=== PATIENT | female | born 1980 | race Caucasian/White ===

== ENCOUNTER → 2016-05-04 | Outpatient (REF) | payer OTHER ==
[~2016-05-04] MED LIST: LORATAB PO
[2016-05-04 13:44] LABS: INR 1.09
== END ==
LOC: M LAB REF 12:53
PROVIDERS: ATTEND Internal Medicine Medical Oncology
DX: C50.411 Malignant neoplasm of upper-outer quadrant of right female breast (principal); Z17.1 Estrogen receptor negative status [ER-]

== ENCOUNTER → 2016-05-09 | Outpatient (CLI) | payer OTHER ==
--- NOTE | 2016-05-10 21:52 | ECHO ---
DATE OF PROCEDURE: 05/09/2016 REFERRING PHYSICIAN: Riya Brewer MD INDICATION: Chemotherapy drugs that may affect the heart. HEIGHT: 163 cm WEIGHT: 61 kg MEASUREMENTS: Left atrium: 2.6 cm Ventricular septum: 0.83 cm Posterior wall: 0.74 cm Left ventricle diastole: 3.4 cm Aortic root: 2.5 cm LVOT: 1.8 cm Inferior vena cava: 1.6 cm DOPPLER MEASUREMENTS: Aortic valve velocity: 112 cm/s LVOT velocity: 79.0 cm/s Mitral E velocity: 86.9 cm/s Mitral A velocity: 54.8 cm/s Very mild tricuspid regurgitation. Estimated right ventricle systolic pressure 20 mmHg assuming a right atrial pressure of 5 mmHg. Pulmonary artery systolic pressure 11 mmHg by pulmonary acceleration time method. MITRAL ANNULAR TISSUE DOPPLER: E prime septal: 11.7 cm/s E prime lateral: 17.5 cm/s DESCRIPTION: Rhythm was sinus. Image quality was fair. No pericardial effusion. This is a 2D, M-mode, color flow Doppler and pulse wave Doppler examination that included mitral annular tissue Doppler. CONCLUSIONS: 1. Normal echocardiogram Doppler. 2. Normal left ventricle (LV) internal dimensions and wall thickness. Normal LV wall motion and wall thickening. Normal LV systolic and diastolic function. Left ventricular ejection fraction (LVEF) 70% by visual estimate.
== END ==
LOC: M CARPUL 11:15
PROVIDERS: ATTEND Internal Medicine Medical Oncology
DX: C50.919 Malignant neoplasm of unspecified site of unspecified female breast (principal)

== ENCOUNTER → 2016-05-10 | Outpatient (CLI) | payer OTHER ==
[~2016-05-10] MED LIST changes: +LIDOCAINE 2% MDV 20 ML VIAL As Ordered ONE; +LIDOCAINE W/EPINEPHRINE 1% 20ML VIAL As Ordered ONE; +SODIUM BICARBONATE 8.4% INJ 50MEQ 50 ML VIAL As Ordered ONE; +ceFAZolin 1GM INJ (J0690) As Ordered ONE
--- NOTE | 2016-05-11 17:56 | REPKIM ---
CLINICAL HISTORY: Breast ca on the right. The referring service has asked a chest [id number] placement for chemotherapy. PROCEDURE PERFORMED: Placement of totally implantable venous access device under combined sonographic and fluoroscopic guidance INTERVENTIONALIST: Chi Cordova MD CONSENT: The risks, benefits and alternatives to the procedure were explained to the patient and informed written consent was obtained. MEDICATIONS: Local Lidocaine and Ancef 1gm IV EBL: 5 mL FLUORO TIME: 0.4 minutes DEVICE USED: [email or web address] Low Profile Port 6.6-Hebrew, Single-Lumen Lot#[id number] PROCEDURE/FINDINGS: The patient was brought to the interventional radiology suite and was positioned supine on the table. Time out procedure was performed. Real time ultrasound was used and permanent image stored. The left IJ vein is patent and compressible. Using ultrasound guidance the internal jugular vein was accessed with a micropuncture needle, after infiltration of the skin and deep tissues with local anesthetic. A peel-away sheath was placed. The catheter tip was inserted via the sheath under controlled respiration. The sheath was removed, and the catheter was flushed with heparinized saline and clamped. Next attention was turned to creation of a subcutaneous pocket for the port along the upper chest. The overlying skin and deep tissues were infiltrated with local anesthetic. A transverse skin incision was made long enough to accommodate the reservoir, and using blunt dissection a subcutaneous pocket was created. A tunnel was created from the pocket to the access site. A clamp was advanced from the pocket incision to the venous access site and used to grasp the free end of the catheter and pull it through to the pocket incision. The catheter was trimmed, attached to the reservoir, and flushed with heparinized saline. The reservoir was inserted into the pocket and secured with 2-0 absorbable sutures. The deep tissue was closed with interrupted 2-0 Vicryl suture. The skin incision was closed with a running subcuticular suture of 4-0 Vicryl. The venotomy incision was closed with 4-0 Vicryl suture. Mastisol and Steri-Strips were applied. The port was then accessed and Heparin (100 units/mL concentration) locked in the port. A sterile dressing was then applied. Post procedure chest spot film radiograph showed the tip of the catheter is at the cavoatrial junction. The patient tolerated the procedure well with no immediate complications. This procedure was performed using ultrasound and fluoroscopy. Dr. Cordova was present. IMPRESSION: 1. The left IJ vein is patent and compressible. 2. Successful placement of left IJ chest port placement as discussed above. The chest [id number] is ready for use. cc: MD FRANCISCA Giron
== END | disposition home or self-care (01) ==
LOC: M IRPRO 08:36
PROVIDERS: ATTEND Internal Medicine Medical Oncology
DX: C50.911 Malignant neoplasm of unspecified site of right female breast (principal)
CPT/HCPCS: 36561; 76937; 77001; C1788; C1894; J0690

== ENCOUNTER 2016-07-07 16:26 | Outpatient (CLI) | payer OTHER ==
[~2016-07-07] VITALS: Ht 162.6 cm; Wt 54.5 kg
[~2016-07-07 16:26] MED LIST changes: -LIDOCAINE 2% MDV 20 ML VIAL As Ordered ONE; -LIDOCAINE W/EPINEPHRINE 1% 20ML VIAL As Ordered ONE; -SODIUM BICARBONATE 8.4% INJ 50MEQ 50 ML VIAL As Ordered ONE; -ceFAZolin 1GM INJ (J0690) As Ordered ONE
[2016-07-07 17:00] VITALS: BP 103/56
[2016-07-07] MEDS ORDERED: diphenhydrAMINE 25 MG CAP PO ONE (17:00)
[2016-07-07] MEDS ORDERED: SODIUM CHLORIDE 0.9% INJ 10 ML SYR IV PRN (17:00)
[2016-07-07] MEDS ORDERED: ACETAMINOPHEN TAB 650MG DOSE (2X325MG) PO ONE (17:15)
[2016-07-08] MEDS ORDERED: SODIUM CHLORIDE 0.9% INJ 10 ML SYR IV SCH (09:00)
== END 2016-07-08 01:00 | disposition home or self-care (01) ==
LOC: M OPCLI4PV 16:26 → M MSPAV 16:43 → M OPCLI4PV 07-08 01:00
PROVIDERS: ATTEND Nurse Practitioner Family
DX: D64.81 Anemia due to antineoplastic chemotherapy (principal)
CPT/HCPCS: 36430; P9016

== ENCOUNTER → 2016-10-06 | Outpatient (CLI) | payer OTHER ==
--- NOTE | 2016-10-08 07:06 | RADONC ---
RADIATION ONCOLOGY CONSULTATION NOTE DATE: 10/06/2016 CHART NUMBER: [id number] DIAGNOSIS: Right breast cancer. STAGE: IA, [id number]. ECOG PERFORMANCE STATUS: 0 CONSULTATION NOTE: Ms. 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 Since she was last seen by us, she presented to medical oncology where she received systemic therapy consisting of a dose dense Adriamycin and Cytoxan as well as Taxol. Her chemotherapy is now complete with the last cycle done on 09/22/2016. She is now presenting for discussion of postoperative radiation therapy once again. PAST MEDICAL HISTORY: The patient's past medical history is noncontributory. She has been in excellent health. SOCIAL HISTORY: The patient has smoked one to two cigarettes per day for about 3 years. She quit in 2003. She drinks alcohol daily. ALLERGIES: The patient has NO KNOWN DRUG ALLERGIES. FAMILY HISTORY: The patient's family history is negative for breast cancer or other malignancies. REVIEW OF SYSTEMS: The patient's review of systems is noncontributory. She denies nausea, vomiting, fevers, chills, night sweats, diplopia, headaches, anxiety or depression, anorexia, weight loss, visual disturbances, chest pain, urinary or bowel difficulties, bone pain, or neurological problems. PHYSICAL EXAMINATION: The patient is a well-developed, well-nourished white female in no acute distress. HEENT exam is normocephalic, atraumatic. Extraocular movements are intact. There is no palpable cervical, supraclavicular, infraclavicular, axillary, or inguinal lymphadenopathy present. Lungs are clear to auscultation and percussion. Heart has a regular rate and rhythm. Abdomen is benign with no hepatosplenomegaly, masses, or tenderness. Breast examination reveals no masses or discharge bilaterally. Skeletal examination reveals no tenderness to pressure or percussion of the bony skeleton. Extremities reveal no clubbing, cyanosis, or edema. Neurologic exam is grossly intact, as is the remainder of the physical examination. ASSESSMENT: Clearly the patient is a candidate for external beam radiation therapy and I have so informed her. I have discussed with the patient in detail the potential benefits as well as possible acute and chronic sequelae of external beam radiation therapy. We discussed the logistics of treatment planning, simulation, and subsequent fractionated daily radiation treatments. I have scheduled the patient for the next available simulation slot and radiation treatments will begin subsequently. Thank you for allowing us to participate in the care of this very pleasant woman. If I could be of any further assistance or provide you with any information, please free to contact me anytime. cc: MD Mickey Rod MD
--- NOTE | 2016-11-01 09:00 | RADONC ---
RADIATION ONCOLOGY PROGRESS NOTE: DATE: 10/31/2016 CHART NUMBER: [id number]. PROGRESS NOTE: Ms. Banks is presently at a dose of 1620 cGy to her right breast and is tolerating treatments quite well at this point with no complaints related to her radiation therapy. She has got no breast or bone pain. REVIEW OF SYSTEMS: The patient's review of systems is noncontributory. Denies nausea, vomiting, fevers, chills, night sweats, diplopia, headaches, anxiety or depression, anorexia, weight loss, visual disturbances, chest pain, urinary or bowel difficulties, bone pain, or neurological problems. PHYSICAL EXAMINATION: The patient's skin is in good condition with no evidence of moist or dry desquamation. The remainder of her physical exam remains unchanged. Ms. Banks is tolerating treatments quite well and radiation will continue as scheduled.
== END ==
LOC: M ONCR 09:08
PROVIDERS: ATTEND Radiology Radiation Oncology
DX: C50.411 Malignant neoplasm of upper-outer quadrant of right female breast (principal)

== ENCOUNTER 2016-10-11 13:45 | Outpatient (RCR) | payer OTHER ==
--- NOTE | 2016-10-12 08:37 | RADONC ---
RADIATION ONCOLOGY SIMULATION NOTE DATE: 10/11/2016 CHART NUMBER: [id number] Ms. Banks was taken to the CT scan for CT simulation of her right breast field. CT was accomplished without difficulty or discomfort. Radiation treatment planning is underway and radiation treatments will begin subsequently. An immobilization device was created without difficulty or discomfort. It will be used throughout the course of treatment. I was physically present throughout the course of CT simulation.
--- NOTE | 2016-10-25 08:06 | RADONC ---
RADIATION ONCOLOGY PROGRESS NOTE DATE: 10/24/2016 CHART NUMBER: [id number] Ms. Banks is presently at a dose of 720 cGy to her right breast and is tolerating treatments quite well at this point with no difficulties related to her radiation therapy. The patient's review of systems is noncontributory. She denies nausea, vomiting, fevers, chills, night sweats, diplopia, headaches, anxiety or depression, anorexia, weight loss, visual disturbances, chest pain, urinary or bowel difficulties, bone pain, or neurological problems. PHYSICAL EXAMINATION: The patient's skin is in excellent condition with no evidence of radiation change present. There is no moist or dry desquamation. The remainder of her physical exam remains unchanged. Ms. Banks is tolerating treatments quite well and radiation will continue as scheduled.
== END 2016-10-31 ==
LOC: M ONCR 13:45
PROVIDERS: ATTEND Radiology Radiation Oncology
DX: C50.411 Malignant neoplasm of upper-outer quadrant of right female breast (principal)

== ENCOUNTER → 2016-10-11 | Outpatient (CLI) | payer OTHER | LOC: M RAD 13:41 | PROVIDERS: ATTEND Radiology Radiation Oncology | DX: C50.911 Malignant neoplasm of unspecified site of right female breast (principal) ==

== ENCOUNTER 2016-11-01 09:00 | Outpatient (RCR) | payer OTHER ==
--- NOTE | 2016-11-08 07:59 | RADONC ---
RADIATION ONCOLOGY PROGRESS NOTE DATE: 11/07/2016 CHART NUMBER: [id number] Ms. Banks is presently at a dose of 2520 cGy to her right breast and is tolerating treatments quite well at this point with no complaints related to her radiation therapy. She has no breast or bone pain. The patient's review of systems is noncontributory. She denies nausea, vomiting, fevers, chills, night sweats, diplopia, headaches, anxiety or depression, anorexia, weight loss, visual disturbances, chest pain, urinary or bowel difficulties, bone pain, or neurological problems. PHYSICAL EXAMINATION: The patient's skin is in good condition with no evidence of moist or dry desquamation. The remainder of her physical exam remains unchanged. Ms. Banks is tolerating treatments quite well, and radiation will continue as scheduled.
--- NOTE | 2016-11-15 08:15 | RADONC ---
RADIATION ONCOLOGY PROGRESS NOTE DATE: 11/14/2016 CHART NUMBER: [id number] Ms. Banks is presently at a dose of 3420 cGy to her right breast and is tolerating treatments quite well at this point with no complaints related to radiation therapy. She is having no breast or bone pain. The patient's review of systems is noncontributory. She denies nausea, vomiting, fevers, chills, night sweats, diplopia, headaches, anxiety or depression, anorexia, weight loss, visual disturbances, chest pain, urinary or bowel difficulties, bone pain, or neurological problems. PHYSICAL EXAMINATION: The patient's skin is in good condition. There is no evidence of moist or dry desquamation. The remainder of physical exam remains unchanged. Ms. Banks is tolerating treatments quite well and radiation will continue as scheduled.
--- NOTE | 2016-11-22 08:02 | RADONC ---
RADIATION ONCOLOGY PROGRESS NOTE DATE: 11/21/2016 CHART NUMBER: Ms. Banks is presently at a dose of 4320 cGy to her right breast and is tolerating treatments quite well at this point with no complaints related to her radiation therapy. She has no breast or bone pain. The patient's review of systems is noncontributory. She denies nausea, vomiting, fevers, chills, night sweats, diplopia, headaches, anxiety or depression, anorexia, weight loss, visual disturbances, chest pain, urinary or bowel difficulties, bone pain, or neurological problems. PHYSICAL EXAMINATION: The patient's skin is in good condition with no evidence of radiation change present. There is no moist or dry desquamation. The remainder of her physical exam remains unchanged. Ms. Banks is tolerating treatments quite well and radiation will continue as scheduled.
--- NOTE | 2016-11-23 05:16 | RADONC ---
RADIATION ONCOLOGY SIMULATION NOTE: DATE: 11/22/2016 CHART NUMBER: [id number]. SIMULATION NOTE: Ms. Banks was taken to the linear accelerator today for clinical setup of her right breast electron beam boost field. Setup was accomplished without difficulty or discomfort. Radiation treatment planning is underway and radiation treatments will begin subsequently. An immobilization device was created and will be used throughout the course of treatment. I was physically present throughout the course of electron setup simulation.
--- NOTE | 2016-11-29 09:14 | RADONC ---
RADIATION ONCOLOGY PROGRESS NOTE DATE: 11/28/2016 CHART NUMBER: [id number] Ms. Banks is presently at a dose of 5260 cGy to her right breast primary site boost and is tolerating treatments quite well at this point with no complaints related to her radiation therapy. She has no skin pain, bone pain or other problems. The patient's review of systems is noncontributory. She denies nausea, vomiting, fevers, chills, night sweats, diplopia, headaches, anxiety or depression, anorexia, weight loss, visual disturbances, chest pain, urinary or bowel difficulties, bone pain, or neurological problems. PHYSICAL EXAMINATION: The patient's skin is in good condition with no evidence of moist or dry desquamation. Remainder of her physical exam remains unchanged. Ms. Banks is tolerating treatments quite well and radiation will continue as scheduled.
== END 2016-12-01 ==
LOC: M ONCR 09:00
PROVIDERS: ATTEND Radiology Radiation Oncology
DX: C50.411 Malignant neoplasm of upper-outer quadrant of right female breast (principal)

== ENCOUNTER 2016-12-02 11:47 | Outpatient (RCR) | payer OTHER ==
--- NOTE | 2016-12-06 12:57 | RADONC ---
RADIATION ONCOLOGY TREATMENT SUMMARY DATE: 12/06/2016 CHART NUMBER: [id number] DIAGNOSIS: Right breast cancer, stage I A, [id number]. ECOG PERFORMANCE STATUS: 0. TREATMENT SUMMARY: Ms. Banks is a very pleasant, 36-year-old white female with the diagnosis of what appears to be a stage I A, [id number], poorly differentiated, triple negative, infiltrating ductal carcinoma of the right breast who presented to us for consideration of postoperative radiation therapy for conservative breast management. We treated the patient to her right breast for a total dose of 4860 cGy delivered in 27 fractions of 180 cGy each over 36 elapsed days from 10/19/2016 through 11/24/2016. The patient's right breast was treated on a linear accelerator utilizing a 6 MV photon beam via medial and lateral tangential johns. Following completion of 4860 cGy to the entire right breast, the primary site was boosted for an additional 1200 cGy delivered in 6 fractions of 200 cGy each from 11/25/2016 through 12/02/2016. The primary site boost was treated on a linear accelerator utilizing a 9 MEV beam prescribed to the 90% isodose line via a non phos technique. This brought the primary site to a total dose 6060 cGy delivered in 33 fractions over 44 elapsed days from 10/19/2016 through 12/02/2016. Ms. Banks tolerated her treatments quite well and was able complete therapy as prescribed. I have scheduled the patient to see me again in 1 month for further followup. She will also continue to be followed by her other physicians as well. cc: MD Mickey Rod MD
== END 2016-12-31 ==
LOC: M ONCR 11:47
PROVIDERS: ATTEND Radiology Radiation Oncology
DX: C50.411 Malignant neoplasm of upper-outer quadrant of right female breast (principal)

== ENCOUNTER → 2017-01-07 | Outpatient (REF) | payer OTHER | LOC: M SFHCLERA 12:39 | PROVIDERS: ATTEND Nurse Practitioner Family | DX: R30.0 Dysuria (principal) | CPT/HCPCS: 87086; 87491; 87591; G0463 ==

== ENCOUNTER → 2017-01-11 | Outpatient (CLI) | payer OTHER ==
--- NOTE | 2017-01-12 11:32 | RADONC ---
RADIATION ONCOLOGY FOLLOWUP NOTE DATE: 01/11/2017 CHART NUMBER: [id number] DIAGNOSIS: Right breast cancer. STAGE: IA, [id number]. ECOG PERFORMANCE STATUS: 0. FOLLOWUP NOTE: Ms. 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 The patient presents today reporting that she is doing quite well with no complaints at this time related to her radiation therapy or disease. She has no breast or bone pain. The patient's review of systems is noncontributory. She denies nausea, vomiting, fevers, chills, night sweats, diplopia, headaches, anxiety or depression, anorexia, weight loss, visual disturbances, chest pain, urinary or bowel difficulties, bone pain, or neurological problems. PHYSICAL EXAMINATION: The patient is a well-developed, well-nourished, female in no acute distress. HEENT exam is normocephalic, atraumatic. Extraocular movements are intact. There is no palpable cervical, supraclavicular, infraclavicular, axillary, or inguinal lymphadenopathy present. Lungs are clear to auscultation and percussion. Heart has a regular rate and rhythm. Abdomen is benign with no hepatosplenomegaly, masses, or tenderness. Breast examination reveals no masses or discharge bilaterally. Skeletal examination reveals no tenderness to pressure or percussion of the bony skeleton. Extremities reveal no clubbing, cyanosis, or edema. Neurologic exam is grossly intact, as is the remainder of the physical examination. ASSESSMENT: The patient is clinically KERMIT at this time. She is being transferred to [place], [place] and therefore is being discharged from our followup except on a as needed basis. We are available to send her records to her new physicians in [place]. cc: MD Mickey Rod MD
== END ==
LOC: M ONCR 15:22
PROVIDERS: ATTEND Radiology Radiation Oncology
DX: C50.411 Malignant neoplasm of upper-outer quadrant of right female breast (principal)